=== PATIENT | male | born 1990 | race Caucasian/White ===

== ENCOUNTER 2020-06-17 14:35 | Emergency (ER) | payer MEDICARE, SELFPAY ==
[2020-06-17 14:46] VITALS: BP 126/90; PULSE 87; RESP 16; TEMP 36.2; O2SAT 99
--- NOTE | 2020-06-17 14:47 | ED.HA ---
HPI - Headache General Chief Complaint: Headache Stated Complaint: Headache, Chills Source: patient Mode of arrival: ambulatory Limitations: no limitations History of Present Illness HPI Narrative: Patient is a 29-year-old male who presents complaining of headache x1 week. He reports taking Tylenol and ibuprofen without any relief. He reports lymphadenopathy behind right ear x1 day. He reports a history of migraines, however, he states that this is different. Patient has a history of CP and per chart patient has a history of MS, patient is unsure of that diagnosis. Patient denies visual disturbances, photophobia or other complaints. MD elicited complaint: headache Related Data Home Medications Medication Instructions Recorded Confirmed gabapentin 600 mg PO TID 06/17/20 06/17/20 Allergies Allergy/AdvReac Type Severity Reaction Status Date / Time No Known Allergies Allergy Verified 06/17/20 16:45 Review of Systems Review of Systems: Narrative: CONSTITUTIONAL: Denies fever, chills, or sweats. EYES: Denies visual changes, redness, or discharge. ENT: Denies rhinorrhea, congestion, sore throat, or otalgia. CARDIOVASCULAR: Denies chest pain, palpitations, or edema. RESPIRATORY: Denies cough or dyspnea. GASTROINTESTINAL: Denies abdominal pain, nausea, vomiting, or diarrhea. GENITOURINARY: Denies dysuria or hematuria. SKIN: Denies rash or itching. MUSCULOSKELETAL: Denies back pain, joint pain, or myalgia. NEUROLOGIC: Reports headache PSYCHIATRIC: Denies anxiety or depression. PMFSH Past Medical History Medical History (Updated 06/17/20 @ 15:19 by EVELYN Hackett) Cerebral palsy Surgical History Surgical History (Updated 06/17/20 @ 15:04 by EVELYN Hackett) No significant past surgical history Family History Family History (Updated 06/17/20 @ 15:04 by EVELYN Hackett) Other No significant family history Social History Social History (Updated 06/17/20 @ 15:04 by EVELYN Hackett) Smoking status: Never smoker Alcohol intake: never Substance use: never Gender identity (if verbalized by the patient): Male Exam Narrative: Exam Narrative: GENERAL: Well-appearing, well-nourished, and in no acute distress. HEAD: Normocephalic, atraumatic. EYES: No redness or drainage. ENT: Mucous membranes pink and moist. Nares clear. No rhinorrhea. TMs normal bilaterally. Throat normal. Uvula midline. NECK: AROM. Supple. Cervical lymphadenopathy. CHEST: No respiratory distress. HEART: Regular rate and rhythm. EXTREMITIES: Normal range of motion. No edema. SKIN: Warm, dry, no rash. NEURO: No focal deficits. Alert and oriented x3. Gait steady. PSYCH: Normal affect. No signs of depression or anxiety. Course Course Emergency Course: Patient to be transferred to [facility] for further evaluation. Vital Signs Vital signs: Vital Signs Temperature 36.2 C L 06/17/20 14:46 Pulse Rate 87 06/17/20 14:46 Respiratory Rate 16 06/17/20 14:46 Blood Pressure 126/90 06/17/20 14:46 Pulse Oximetry 99 06/17/20 14:46 Temperature 36.2 C L 06/17/20 14:46 Pulse Rate 87 06/17/20 14:46 Respiratory Rate 16 06/17/20 14:46 Blood Pressure 126/90 06/17/20 14:46 Pulse Oximetry 99 06/17/20 14:46 reviewed Transfer Transfered to: [place] Transfer rationale: Higher level of care Accepting physician: Dr. Huang Transfer comments: Patient to transfer by private vehicle. Report given to ALTON Louis as all physicians and Advanced Providers were unavailable. MDM - Headache MDM Narrative Medical decision making narrative: Discussed with patient because of the length of headache, as well as attempting home treatment of headache without relief, that patient should have further evaluation in the emergency department. Patient agrees. Patient to be seen in the emergency department at this time. Report called. Patient is stable for transfer to the emergency department by alivia
== END 2020-06-17 15:20 | disposition short-term general hospital (02) ==
PROVIDERS: Emergency Provider Nurse Practitioner; PCP Emergency Medicine
DX: R51.9 Headache, unspecified (principal); G80.9 Cerebral palsy, unspecified
CPT/HCPCS: 99213; G0463

== ENCOUNTER 2020-06-17 16:03 | Emergency (ER) | payer MEDICARE, SELFPAY ==
--- NOTE | ~2020-06-17 | US_ITS ---
EXAMINATION: US venous doppler LE RT DATE: 06/17/2020 17:30 INDICATION: Right lower limb pain TECHNIQUE: Grayscale ultrasound images without and with compression and Doppler ultrasound images of the right lower extremity veins were obtained. COMPARISON: None. FINDINGS: The visualized portions of right common femoral vein, profunda (deep) femoral vein, femoral vein, pop liteal vein, peroneal trunk, posterior tibial veins, peroneal veins, gastrocnemius vein and greater s aphenous vein outflow are patent. IMPRESSION: 1. No deep venous thrombosis in the right lower limb. Reviewed, dictated and finalized at location A. ENT MANAGER
--- NOTE | ~2020-06-17 | CT_ITS ---
EXAMINATION: CT brain wo con DATE: 06/17/2020 18:37 INDICATION: 6 days of headache TECHNIQUE: Computed tomography (CT) of the head was performed without intravenous contrast. Sagittal and coronal reconstructions were performed. The mA was adjusted according to patient size. Iterative reconstruction technique was employed. The dose-length product was 605.33 mGy-cm. COMPARISON: Brain MR dated 11/07/2016 FINDINGS: No acute intracranial hemorrhage, acute infarction or abnormal extra axial fluid collection. Ventricl es are normal and symmetric. No mass/mass effect. The orbits, paranasal sinuses and mastoid air cells are normal. IMPRESSION: 1. Normal head CT. Reviewed, dictated and finalized at location A. MAKING SUPERVISOR IMPRESSION: 1. Normal head CT.
[2020-06-17 16:32] VITALS: BP 124/86; PULSE 77; RESP 14; TEMP 36.6; O2SAT 99
[2020-06-17 18:27] LABS: Basophils Percent Auto 0.7 % (0.2-1.2); Eosinophils Absolute Auto 0.1 K/mm3 (0-0.3); Eosinophils Percent Auto 1.7 % (0-4.4); Hematocrit 45.9 % (42.0-52.0); Hemoglobin 15.4 g/dL (14.0-18.0); Immature Granulocyte Absolute 0.01 K/mm3 (0.00-0.031); Immature Granulocyte Percent A 0.2 % (0-0.5); Lymphocytes Absolute Auto 1.82 K/mm3 (0.9-3.2); Mean Corpuscular HGB Conc 33.6 g/dl (32-36); Mean Corpuscular Volume 92.4 fl (80-100); Mean Platelet Volume 9.3 fl (7.4-10.4); Monocytes Absolute Auto 0.8 K/mm3 (0.1-0.6); Monocytes Percent Auto 14.2 % (2.6-8.5); Neutrophils Absolute Auto 2.6 K/mm3 (1.3-6.7); Neutrophils Percent Auto 49.2 % (45.5-73.1); Platelet Count Result 261 k/mm3 (150-375); Red Blood Count 4.97 M/mm3 (4.6-6.20); Red Cell Distribution Width 12.3 % (11.5-14.5); White Blood Count 5.4 K/mm3 (4.5-10.0)
[2020-06-17] MEDS: SODIUM CHLORIDE 0.9% IV 1,000 ML 999 ML IV CONT (18:27)
[2020-06-17 18:37] LABS: Anion Gap 8 mmol/L (8-16); Blood Urea Nitrogen 14 mg/dL (9-20); Calcium 9.5 mg/dL (8.4-10.2); Carbon Dioxide 30 mmol/L (22-30); Chloride 102 mmol/L (98-107); Estimated CRCL calculation 103 ml/min; Estimated Glomerular Filt Rate > 60; Glucose 87 mg/dL (75-110); Potassium 3.9 mmol/L (3.4-5.0); Sodium 140 mmol/L (137-145)
--- NOTE | 2020-06-17 19:40 | ED.GENADULT ---
HPI - General Adult General Chief complaint: Unspecified Stated complaint: Mutliple Complaints Time Seen by Provider: 06/17/20 17:22 Source: patient Mode of arrival: ambulatory Limitations: no limitations History of Present Illness HPI narrative: Patient is a 29-year-old male who presents with 5 days duration frontal posterior headache slight congestion also notes a swollen lymph node right posterior cervical chain patient has tried [id number] medications with minimal improvement presents from urgent care does have history of migraine headaches states this is slightly different denies fever or URI symptoms or other complaints presents in no distress denies emesis or other concerning findings Related Data Home Medications Medication Instructions Recorded Confirmed gabapentin 600 mg PO TID 06/17/20 06/17/20 Allergies Allergy/AdvReac Type Severity Reaction Status Date / Time No Known Allergies Allergy Verified 06/17/20 16:45 Review of Systems Review of Systems: All systems reviewed & are unremarkable except as noted in HPI and below PMFSH Past Medical History Medical History Cerebral palsy Surgical History Surgical History No significant past surgical history Family History Family History (Updated 06/17/20 @ 15:04 by EVELYN Hackett) Other No significant family history Social History Social History Smoking status: Never smoker Alcohol intake: never Substance use: never Gender identity (if verbalized by the patient): Male Exam Narrative: Exam Narrative: GENERAL: Well-appearing, well-nourished, and in no acute distress. HEAD: Normocephalic, atraumatic. EYES: PERRLA and EOMI. ENT: Nares clear, no rhinorrhea or epistaxis. Mucous membranes moist. Oropharynx without tonsillar hypertrophy exudate or other lesions. Bilateral TMs pearly palacios nonbulging NECK: Supple. No carotid bruits or JVD. Single 1 cm posterior cervical chain lymph node no erythema no fluctuance CHEST: Clear to auscultation. No respiratory distress. No wheezes rales or rhonchi HEART: Regular rate and rhythm. No murmur heard. EXTREMITIES: Normal range of motion. No edema. Patient notes left calf tenderness to palpation states he has been having some cramping SKIN: Warm, dry, no rash. NEURO: No focal deficits. Alert and oriented x3. Cranial nerves II through XII grossly intact. Normal speech and gait PSYCH: Normal mood and affect. Course Course Emergency Course: Patient in the room in no distress aware of case findings treatment plan and diagnosis felt appropriate for outpatient reevaluation no distress Vital Signs Vital signs: Vital Signs Temperature 97.8 F 06/17/20 16:32 Pulse Rate 77 06/17/20 16:32 Respiratory Rate 14 06/17/20 16:32 Blood Pressure 124/86 06/17/20 16:32 Pulse Oximetry 99 06/17/20 16:32 Temperature 97.8 F 06/17/20 16:32 Pulse Rate 77 06/17/20 16:32 Respiratory Rate 14 06/17/20 16:32 Blood Pressure 124/86 06/17/20 16:32 Pulse Oximetry 99 06/17/20 16:32 Medical Decision Making MDM Narrative Medical decision making narrative: Patients headache was not sudden or maximal in onset. There are o focal neurological deficits on exam. Subarachnoid hemorrhage is felt to be unlikey at this time. There is no history of fever, and neck is supple without meningismus, making meningitis unlikely. No traumatic history or signs of trauma on exam. No risk factors for CVA, risk factors reviewed. NO ocular signs on exam and in history to suggest acute glaucoma. Patients headache is felt to be a reasonable candidate for outpatient evaluation Vital Signs Vital Signs: Vital Signs Temperature 97.8 F 06/17/20 16:32 Pulse Rate 77 06/17/20 16:32 Respiratory Rate 14 06/17/20 16:32 Blood Pressure 124/86
[2020-06-17 19:57] VITALS: BP 118/64; PULSE 80; RESP 18; O2SAT 98
== END 2020-06-17 20:00 | disposition home or self-care (01) ==
PROVIDERS: Emergency Medicine Emergency Medical Services; Emergency Provider Emergency Medicine; PCP Emergency Medicine
DX: R51.9 Headache, unspecified (principal); G80.9 Cerebral palsy, unspecified; M79.662 Pain in left lower leg
CPT/HCPCS: 36415; 70450; 80048; 85025; 93971; 96374; 99284; J0131; J7030

== ENCOUNTER 2020-09-25 08:17 | Emergency (ER) | payer MEDICARE, SELFPAY ==
--- NOTE | ~2020-09-25 | XR_ITS ---
EXAMINATION: XR ankle LT min 3V, XR foot LT min 3V EXAM DATE: 09/25/2020 08:52 INDICATION: lt foot and ankle with lateral and metatarsal pain. No known recent injury provided at is time. TECHNIQUE: Left foot dorsoplantar, lateral and oblique projections obtained and reviewed. Left ankle frontal, lateral and oblique projections obtained and reviewed. There is no prior study for compari son. FINDINGS: Left metatarsal bones unremarkable. The left ankle mortise appears intact. There are no acute fractures or dislocations identified. There is no subcutaneous gas. The soft tissue is unrem arkable. There are no radiopaque foreign bodies. There are no bony erosions identified. No periost eal reaction or band of sclerosis to suggest subacute stress fracture. IMPRESSION: 1. Unremarkable left foot, ankle exam. Reviewed, dictated and finalized at location D. LE TESTER IMPRESSION: 1. Unremarkable left foot, ankle exam.
[2020-09-25 08:32] VITALS: BP 133/87; PULSE 73; RESP 16; TEMP 36.4; O2SAT 100
--- NOTE | 2020-09-25 08:50 | ED.LOWEXIN ---
HPI - Extremity Injury (Lower) General Chief Complaint: Extremity Injury, Lower Stated Complaint: Left Foot Pain Time Seen by Provider: 09/25/20 08:40 Source: patient Mode of arrival: ambulatory Limitations: no limitations History of Present Illness HPI Narrative: Felton Diaz is a 30-year-old male with a PMH of cerebral palsy who came to [facility] after a fall downstairs 4 days ago with left upper foot and lateral ankle pain that has not improved. Patient rates his pain with walking is 6 or 7 out of 10 and at rest little pain he has swelling that has not improved. Comes for an x-ray to make sure that nothing is fractured He has no prior history of foot fracture Related Data Home Medications Medication Instructions Recorded Confirmed gabapentin 600 mg PO TID 06/17/20 09/25/20 Topamax 09/25/20 Allergies Allergy/AdvReac Type Severity Reaction Status Date / Time No Known Allergies Allergy Verified 09/25/20 08:27 Review of Systems Review of Systems: Narrative: CONSTITUTIONAL: Denies fever, chills, sweats. EYES: Denies visual changes, redness, discharge. ENT: Denies rhinorrhea, congestion, sore throat, otalgia. CARDIOVASCULAR: Denies chest pain, palpitations, edema. RESPIRATORY: Denies dyspnea, wheezing, cough GASTROINTESTINAL: Denies abdominal pain, nausea, vomiting, diarrhea. GENITOURINARY: Denies dysuria, hematuria, abnormal discharge SKIN: Denies rash or itching. NEUROLOGIC: Denies numbness, or focal weakness. PSYCHIATRIC: Denies anxiety or depression. Left upper foot pain, left lateral foot pain PMFSH Past Medical History Medical History Cerebral palsy Surgical History Surgical History No significant past surgical history Family History Family History Mother Hypertension Social History Social History (Updated 09/25/20 @ 08:59 by Karin Muñoz CNP) Smoking status: Never smoker Alcohol intake: never Substance use: never Other substance usage details: Occasional marijuana use Gender identity (if verbalized by the patient): Male Comments At time of signature, I agree with nursing past medical, surgical, social and family history. There is no relevant family history pertinent to the presenting complaint. Exam Narrative: Exam Narrative: GENERAL: This is a well-nourished, well-developed patient, in mild distress. HEAD: normocephalic, atraumatic. EYES: Sclera clear/white. Vision is grossly intact. EARS: External ears normal. Hearing grossly intact. NOSE: External nose normal without nasal discharge, nares without redness, no rhinorrhea. THROAT: Mucous membranes moist, NECK: Neck supple, non-tender CARDIOVASCULAR: Regular rate and rhythm without murmurs, gallops, or rubs. RESPIRATORY: Clear to auscultation. Breath sounds equal bilaterally. No wheezes, rales, or rhonchi. GASTROINTESTINAL: Abdomen soft, SKIN: warm, intact with no suspicious lesions or rash, good texture and turgor. NEURO: awake, alert, and oriented to person, place and time. There were no obvious focal neurologic abnormalities. Steady gait EXTREMITIES: Normal range of motion On R- L foot-pain on lateral dorsum with mild swelling and redness, can wiggle toes without pain but pain with flexion of foot and pressure of walking BACK: Nontender without deformity Course Course Emergency Course: Patient came to [facility] for evaluation of left foot pain after fall 4 days ago X-ray shows -unremarkable left foot or ankle exam there is no acute fracture dislocation no subcutaneous gas soft tissue is unremarkable Patient foot in Miles wrap, ice to ankle, given ibuprofen 600 mg Vital Signs Vital signs: Vital Signs Temperature 97.6 F 09/25/20 08:32 Pulse Rate 73 09/25/20 08:32 Respiratory Rate 16 09/25/20 08:32 Blood Pressure 133/87
== END 2020-09-25 09:16 | disposition home or self-care (01) ==
PROVIDERS: Emergency Provider Nurse Practitioner; PCP Emergency Medicine
DX: S93.402A Sprain of unspecified ligament of left ankle, initial encounter (principal); S96.912A Strain of unspecified muscle and tendon at ankle and foot level, left foot, initial encounter; W10.9XXA Fall (on) (from) unspecified stairs and steps, initial encounter; G80.9 Cerebral palsy, unspecified
CPT/HCPCS: 73610; 73630; 99213; G0463

== ENCOUNTER 2023-04-03 11:41 | Day surgery (SDC) | payer MEDICARE, SELFPAY ==
[2023-02-21 13:24] VITALS: BMI 20.7
[2023-03-14 13:56] VITALS: BMI 21.5
[2023-04-03 12:00] VITALS: BP 114/77; PULSE 64; RESP 16; TEMP 36.9; O2SAT 100
--- NOTE | 2023-04-03 12:09 | WPDANESEPPF ---
Anes - Initial Pre Proc Eval Procedure: Operation Date: 04/03/23 13:00 Proposed Procedures p Diagnostic Colonoscopy - Riley Herrera MD Date/Time: 04/03/23 12:09 Surgeon: Riley Herrera MD Pre Op Diagnosis: Gastrointestinal Hemorrhage and Arteriovenous Malf Patient Data Age: 32 Gender: M Height: 1.8 m Weight: 69.9 kg Last Vital Signs Temp 36.9 C 04/03/23 12:00 Pulse 64 04/03/23 12:00 Resp 16 04/03/23 12:00 BP 114/77 04/03/23 12:00 Pulse Ox 100 04/03/23 12:00 O2 Del Method Room Air 04/03/23 12:00 Allergies Allergy/AdvReac Type Severity Reaction Status Date / Time No Known Allergies Allergy Verified 04/03/23 11:59 Home Medications Medication Instructions Recorded Confirmed Type multivitamin (Daily Multi-Vitamin 1 tablet PO DAILY 01/31/23 04/03/23 History tablet) sodium,potassium,mag sulfates 17.5 See Rx Instructions PO .COMPLEX 02/21/23 04/03/23 Rx gram-3.13 gram-1.6 gram oral soln #354 mL (Suprep Bowel Prep Kit) Patient hx anesthesia problems: none Family hx anesthesia problems: none Results Review: All pre-operative results and documents have been reviewed as part of the pre-operative evaluation. [facility] Past Medical History Medical History Anemia AVM (arteriovenous malformation) Cerebral palsy Surgical History Surgical History No significant past surgical history Family History Family History Mother Hypertension Social History Social History Smoking status: Never smoker Alcohol intake: never Substance use: current Substance use type: marijuana Other substance usage details: Occasional marijuana use Living arrangements: with family Gender identity (if verbalized by the patient): Male Spiritual care concerns: No Anes - Eval Final PreProcedure Day of Procedure 04/03/23 12:09 Patient weight: normal Heart: regular rate and rhythm Airway: Mallampati scale class II Neurological: alert and oriented Last oral intake: >/= 8 hours ASA classification: III Emergent: no Anesthetic plan: proceed Anesthesia type and monitoring: general GIVS and standard monitoring Results Review: All pre-operative results and documents have been reviewed as part of the pre-operative evaluation. Informed Consent: The patient's anesthetic plan and its attendant risks and benefits were discussed with the patient/family/POA. Questions were solicited and answers provided to the satisfaction of the patient/family/POA.
[2023-04-03] MEDS: LACTATED RINGERS 1,000 ML 150 ML IV CONT (12:11)
--- NOTE | 2023-04-03 12:19 | PM.HPGS ---
History of Present Illness History of Present Illness Consent: Risks, benefits, and alternatives have been discussed and questions answered. Patient agrees to proceed with procedure. Chief complaint: Gastrointestinal Hemorrhage and Arteriovenous Malf Narrative: Felton Diaz III is a 32 year old male Presents for colonoscopy. Patient has a history of lower GI bleeding. Initially presented to [facility] in [place]. Was transferred to [facility] where he underwent intravascular coil deployment for apparent bleeding from a an ileal dysplasia. This cause cessation of bleeding. Patient states he has never had a colonoscopy. Patient referred to our service for colonoscopy to exclude any residual organic disease. Patient has had no additional recent bleeding. Past medical history is significant for cerebral palsy. He is very functional at present. He states he had a similar bleeding at [facility] as a child is unsure how this was treated. Patient has been doing well since his discharge from [facility] no recent additional bleeding noted. He denies abdominal pain. Review of Systems Review of Systems: Review of systems noncontributory. [facility] Past Medical History Medical History (Updated 04/03/23 @ 12:22 by Riley Herrera MD) Anemia AVM (arteriovenous malformation) Cerebral palsy Surgical History Surgical History No significant past surgical history Family History Family History Mother Hypertension Social History Social History Smoking status: Never smoker Alcohol intake: never Substance use: current Substance use type: marijuana Other substance usage details: Occasional marijuana use Living arrangements: with family Gender identity (if verbalized by the patient): Male Spiritual care concerns: No Meds Home Medications and Allergies Home Medications Medication Instructions Recorded Confirmed Type multivitamin (Daily Multi-Vitamin 1 tablet PO DAILY 01/31/23 04/03/23 History tablet) sodium,potassium,mag sulfates 17.5 See Rx Instructions PO .COMPLEX 02/21/23 04/03/23 Rx gram-3.13 gram-1.6 gram oral soln #354 mL (Suprep Bowel Prep Kit) Allergies Allergy/AdvReac Type Severity Reaction Status Date / Time No Known Allergies Allergy Verified 04/03/23 11:59 Vital Signs Vital Signs - 24 hr 04/03/23 12:00 Temperature 98.4 F Pulse Rate 64 Respiratory Rate 16 Blood Pressure 114/77 Pulse Oximetry 100 Oxygen Delivery Room Air Exam Narrative: Physical exam reveals patient to be alert. Vital signs stable. HEENT exam is unremarkable. Patient is anicteric. Lungs are clear to auscultation and percussion. Heart is without murmur or extra sounds. Abdomen bowel sounds present soft nontender with no hepatosplenomegaly. Digital external rectal exam is normal. 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 Plan for colonoscopy to assess for any additional lesions at this time . patient has done well since recent treatment at [facility] with coil by Interventional Radiology. (2) History of GI bleed: Code(s): Z87.19 - Personal history of other diseases of the digestive system Status: Acute Assessment and Plan: No recent bleeding after his recent hospitalization. (3) Cerebral palsy: Code(s): G80.9 - Cerebral palsy, unspecified Status: Acute
[2023-04-03 12:57] VITALS: BP 102/60; PULSE 60; RESP 16; O2SAT 99
[2023-04-03 13:07] VITALS: BP 105/72; PULSE 59; RESP 15; O2SAT 100
[2023-04-03 13:17] VITALS: BP 112/79; PULSE 60; RESP 15; O2SAT 100
--- NOTE | 2023-04-03 13:38 | WPDANESPN ---
Anes - Prog Note Post-Op Date/Time: 04/03/23 13:38 Cardiovascular status: normal Respiratory status: normal Airway patency: baseline Mental status: baseline Post-Op hydration status: normal Vital Signs: Last Vital Signs Temp 36.9 C 04/03/23 12:00 Pulse 60 04/03/23 13:17 Resp 15 04/03/23 13:17 BP 112/79 04/03/23 13:17 Pulse Ox 100 04/03/23 13:17 O2 Del Method Room Air 04/03/23 13:17 Pain Score (VAS): 0 I/O: Intake & Output 04/02/23 04/03/23 04/03/23 23:59 07:59 15:59 Intake Total 700 Balance 700 Patient Feedback: Patient satisfied with anesthetic care.
== END 2023-04-03 13:35 | disposition home or self-care (01) ==
PROVIDERS: PCP Emergency Medicine; Visit Provider Internal Medicine Gastroenterology
PROC: 0DJD8ZZ Inspection of Lower Intestinal Tract, Via Natural or Artificial Opening Endoscopic (ICD-10-PCS; CPT 45378; principal; 2023-04-03 13:00)
DX: Z12.11 Encounter for screening for malignant neoplasm of colon (principal); K64.8 Other hemorrhoids
CPT/HCPCS: 45378

== ENCOUNTER 2023-04-14 08:47 | Outpatient (CLI) | payer MEDICARE, SELFPAY ==
--- NOTE | ~2023-04-14 | XR_ITS ---
EXAMINATION: XR small bowel follow through DATE: 04/14/2023 11:56 INDICATION: Disease of the digestive track with persistent abdominal pain TECHNIQUE: Cattle Driver radiograph(s) of the abdomen was/were obtained. Oral contrast was administered, and sequential radiographs of the abdomen were obtained until oral contrast was noted to be in the proxi mal colon. Spot fluoroscopic images of the small bowel were obtained. A total of 513 fluoroscopic katelynn ges and 7 overhead radiographs were obtained. Fluoroscopy exposure time was 3.0 minutes. COMPARISON: None. FINDINGS: Cattle Driver image demonstrates a normal bowel gas pattern. Somewhat serpiginous linear metallic density pro jecting over the central pelvis reportedly related to reported prior embolization of an AV malformati on. Transit time from the stomach to proximal colon was approximately 1.5 hours. There is normal stephen samir throughout the small bowel. There is a normal jejunal fold pattern. There appears to be jejunaliz ation of the mucosal fold pattern extending more distally into the ilium. Terminal ileum is normal. No tethering or abnormal mass effect observed upon the small bowel with real-time fluoroscopy. IMPRESSION: 1. 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 Reviewed, dictated and finalized at location A. IMPRESSION: 1. 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
== END 2023-04-14 08:48 | disposition home or self-care (01) ==
PROVIDERS: PCP Emergency Medicine; Visit Provider Internal Medicine Gastroenterology
DX: Q27.30 Arteriovenous malformation, site unspecified (principal); Z87.19 Personal history of other diseases of the digestive system
CPT/HCPCS: 74250

== ENCOUNTER 2025-02-16 17:11 | Emergency (ER) | payer MEDICARE, SELFPAY ==
--- NOTE | 2025-02-16 17:15 | ED.GENADULT ---
HPI - General Adult General Chief complaint: Abdominal Pain Stated complaint: Abdominal Pain Time Seen by Provider: 02/16/25 17:15 Source: patient Mode of arrival: ambulatory Limitations: no limitations History of Present Illness HPI narrative: 34-year-old male patient presents to [facility] with complaints of nausea vomiting and chronic abdominal pain. Patient states he had an abdominal surgery about a year ago and had a coil put in. Patient states ever since his abdominal surgery he has had chronic abdominal pain usually are around a 3/10. Patient states today out of no where his pain shot up to about a 6 and the pain brought him to his knees and states he vomited about 3 times. Patient states he started get some numbness around the mouth came in today because he was concerned about his breathing. Patient states he does eat a lot of processed foods, gluten and smokes marijuana daily. Patient denies any fevers body aches or chills at this time. Denies any chest pain or shortness of breath. States patient states that this episode lasted approximately 30 minutes while at work today and started about 2 hours ago. Related Data Allergies Allergy/AdvReac Type Severity Reaction Status Date / Time No Known Allergies Allergy Verified 02/16/25 17:39 Review of Systems Review of Systems: CONSTITUTIONAL: Denies fever, chills, or sweats. EYES: Denies visual changes, redness, or discharge. ENT: Denies rhinorrhea, congestion, sore throat, or otalgia. CARDIOVASCULAR: Denies chest pain, palpitations, or edema. RESPIRATORY: Denies cough or dyspnea. GASTROINTESTINAL: Positive abdominal pain, nausea, vomiting, denies diarrhea. GENITOURINARY: Denies dysuria or hematuria. SKIN: Denies rash or itching. MUSCULOSKELETAL: Denies back pain, joint pain, or myalgia. NEUROLOGIC: Denies headache, numbness, or weakness. PSYCHIATRIC: Denies anxiety or depression. [facility] Past Medical History Medical History Anemia AVM (arteriovenous malformation) Cerebral palsy Surgical History Surgical History No significant past surgical history Family History Family History Mother Hypertension Social History Social History Smoking status: Never smoker Alcohol intake: never Substance use: current Substance use type: marijuana Other substance usage details: Occasional marijuana use Living arrangements: with family Gender identity (if verbalized by the patient): Male Spiritual care concerns: No Comments At the time of my signature I agree with nursing past medical history, surgical, social, and family history. There is no relevant family history pertinent to the presenting complaint. Exam Narrative: GENERAL: Well-appearing, well-nourished, and in no acute distress. HEAD: Normocephalic, atraumatic. EYES: PERRLA and EOMI. ENT: Nares clear, no rhinorrhea or epistaxis. Mucous membranes moist. NECK: Supple. No lymphadenopathy CHEST: Clear to auscultation. No respiratory distress. HEART: Regular rate and rhythm. No murmur heard. Normal peripheral pulses. ABDOMEN: Soft, flat, nondistended. No guarding, rebound tenderness, or rigid. No pulsatilla masses. Bowel sounds present in all four quadrants. No organomegaly. Negative Schrader?s sign. No periumbicial tenderness. No Supra public tenderness or distension. Good femoral pulses bilaterally. No hernia noted. No scars or surface trauma. EXTREMITIES: Normal range of motion. No edema. SKIN: Warm, dry, no rash. NEURO: No focal deficits. Alert and oriented x3. Course Course Level of Care: Express Care Visit Vital Signs Vital signs: Vital Signs Temperature 37.3 C 02/16/25 17:30 Pulse Rate 66 02/16/25 17:30 Respiratory Rate 20 02/16/25 17:30 Blood Pressure 130/87 02/16/25 17:30 Pulse Oximetry 100 02/16/25 17:30 Oxygen Delivery Room Air 02/16/25 17:30 Temperature 37.3 C 02/16/25 17:30 Pulse Rate 66 02/16/25 17:30 Respiratory Rate 20 02/16/25 17:30 Blood Pressure 130/87 02/16/25 17:30 Pulse Oximetry 100 02/16/25 17:30 Oxygen Delivery Room Air 02/16/25 17:30 Vital signs reviewed. Medical Decision Making MDM Narrative Medical decision making narrative: Discussed with patient that in the urgent care we are not. Quit to workup abdominal pain. Discussed with him that we do not have the capability to do blood work, run labs, do IVs, no ultrasound, no CT and no x-ray at this time. Discussed with patient if he would like a full workup we can send him to the emergency department. Discussed with patient his vitals are stable today and this does sound like a chronic issue with him. Discussed with patient that his oxygen level is good and the numbness around the mouth could be from hyperventilation from the vomiting. Discussed with patient that we can also send him home with some Zofran to help with his nausea vomiting and have him call his GI doctor tomorrow. Patient states he is feeling better than when the episode started states he will just take some Zofran and call his GI doctor tomorrow. Discussed with patient that he may want to change his diet and due to his intake of high processed foods, gluten and just very low nutrient dense foods could be causing a lot of his GI issues. The marijuana use could also be causing a lot of his emesis as well. Discussed with patient that he should discuss these options with his GI doctor at his next visit. Denies any other questions or concerns at this time. Differential Diagnosis Differential Diagnosis: Differential diagnosis: Appendicitis, gallbladder disease, pancreatitis, lower lobe pneumonia,AAA, AMI or ACS, DKA, diverticulitis. Vital Signs Vital Signs: Vital Signs Temperature 37.3 C 02/16/25 17:30 Pulse Rate 66 02/16/25 17:30 Respiratory Rate 02/16/25 17:30 Blood Pressure 130/87 02/16/25 17:30 Pulse Oximetry 100 02/16/25 17:30 Oxygen Delivery Room Air 02/16/25 17:30 Temperature 37.3 C 02/16/25 17:30 Pulse Rate 66 02/16/25 17:30 Respiratory Rate 20 02/16/25 17:30 Blood Pressure 130/87 02/16/25 17:30 Pulse Oximetry 100 02/16/25 17:30 Oxygen Delivery Room Air 02/16/25 17:30 Critical Care Time Critical Care Time Critical Care Time: No Discharge Plan Discharge Clinical Impression: Nausea & vomiting, Abdominal pain, chronic, generalized Patient Disposition: Home Condition: Stable Instructions: Antibiotic Form, Abdominal Pain (ED) Additional Instructions: Give fluids to prevent dehydration. Low-fat diet with increase in fluids, such as sports drinks, gelatin, soups, to prevent dehydration. Other suggestions include chicken noodle soup, Rice, bread, crackers, cereal, yogurt bananas, and applesauce. High sugar foods and drinks (soda and juices), can worsen diarrhea. Eating fried foods can worsen diarrhea. For vomiting: The adams is to give small amounts at a time. When the stomach is upset, and will vomit when it fills. Prevent this by giving only 1 cup at a time. And to give more in 15 minutes. This will keep the stomach empty, so the patient is less likely to vomit. If you do not vomit after this, you can slowly increase the amount in the cup each time. Medicines to stop vomiting can help. Call your doctor or go to the ER if your condition worsens or: Fever (temperature greater than 10 2?F [39?C]) occurs. There is blood in the stool diarrhea or if the stool is black. Lots of diarrhea occurs. Lots of vomiting occurs or the vomit is bloody or green or looks like chocolate or coffee. The belly looks very full or big. Symptoms of dehydration occurs (inside of the mouth looks sticky, urinating less, weakness, tiredness, pale color, eyes look hollow or sucken). Abdominal pain is worse. Patient Language: Maori Prescriptions: New ondansetron 4 mg tablet,disintegrating 4 mg PO Q6H PRN (Reason: nausea and vomiting) Qty: 10 0RF Follow-up/Referrals: Wilian Mckeon MD [Primary Care Provider] - Time of Disposition: 17:46
[2025-02-16 17:30] VITALS: BP 130/87; PULSE 66; RESP 20; TEMP 37.3; O2SAT 100
== END 2025-02-16 17:55 | disposition home or self-care (01) ==
PROVIDERS: Emergency Provider Nurse Practitioner Family; PCP Emergency Medicine
DX: R11.2 Nausea with vomiting, unspecified (principal); G89.29 Other chronic pain; R10.84 Generalized abdominal pain; F12.90 Cannabis use, unspecified, uncomplicated; G80.9 Cerebral palsy, unspecified; Q27.30 Arteriovenous malformation, site unspecified
CPT/HCPCS: 99213; G0463